=== PATIENT | female | born 1970 | race Caucasian/White ===

== ENCOUNTER 2020-10-16 06:05 | Day surgery (SDC) | payer SELFPAY ==
[2020-10-12 09:15] VITALS: BMI 29.9
[2020-10-16] MEDS ORDERED: BACITRACIN 15 GM TUBE TOPICAL OINTMENT ONE ×2 (07:34→10:27)
[2020-10-16] MEDS ORDERED: LIDOCAINE HCL 1%, 10 MG/ML (20ML VIAL) ONE ×2 (07:34→09:02)
[2020-10-16] MEDS ORDERED: EPINEPHrine/PF 1 MG/1 ML (1:1,000) AMPULE ONE ×2 (07:35→09:02)
[2020-10-16] MEDS ORDERED: SCOPOLAMINE HYDROBROMIDE 1 PATCH PATCH.TD72 ONE (07:36)
[2020-10-16] MEDS ORDERED: ROCURONIUM BROMIDE 50 MG/5 ML SYRINGE ONE (07:51)
[2020-10-16] MEDS ORDERED: PROPOFOL 20 ML ONE (07:51)
[2020-10-16] MEDS ORDERED: MIDAZOLAM HCL 2 MG/2 ML SINGLE DOSE VIAL ONE ×2 (07:51)
[2020-10-16] MEDS ORDERED: fentaNYL CITRATE 250 MCG/5 ML VIAL ONE (07:51)
[2020-10-16] MEDS ORDERED: DEXAMETHASONE SOD PHOSPHATE 4 MG/1 ML VIAL ONE (09:53)
[2020-10-16] MEDS ORDERED: ONDANSETRON 4 MG/2 ML VIAL ONE ×2 (09:53→12:12)
[2020-10-16] MEDS ORDERED: HYDROmorphone HCL/PF 1 MG/ML VIAL ONE (10:14)
[2020-10-16] MEDS ORDERED: NEOSTIGMINE METHYLSULFATE 0.5 MG/1 ML - 10 ML MDV ONE (11:00)
[2020-10-16] MEDS ORDERED: GLYCOPYRROLATE 0.2 MG/1 ML VIAL ONE (11:01)
[2020-10-16] MEDS ORDERED: ENOXAPARIN NA (PORCINE) 40 MG/0.4 ML DISP.SYRIN SQ ONE (12:12)
[2020-10-16] MEDS ORDERED: ACETAMINOPHEN INJECTION 100 ML IVPB ONE (12:13)
[2020-10-16] MEDS ORDERED: KETOROLAC TROMETHAMINE 30 MG/1 ML VIAL ONE (12:13)
[2020-10-16] MEDS ORDERED: ACETAMINOPHEN 1000 MG/100 ML VIAL (NON FORMULARY) IVPB ONE (12:27)
[2020-10-16] MEDS ORDERED: KETOROLAC TROMETHAMINE 30 MG/1 ML VIAL IVPUSH ONE (12:27)
[2020-10-16] MEDS ORDERED: ONDANSETRON 4 MG/2 ML VIAL IVPUSH PRN (12:27)
[2020-10-16] MEDS ORDERED: oxyCODONE HCL 5 MG TABLET PO PRN (12:27)
[2020-10-16 14:42] VITALS: TEMP 98.6
[2020-10-16 15:26] VITALS: BP 124/69; PULSE 78
== END 2020-10-16 13:15 | disposition home or self-care (01) ==
LOC: FASU 06:05
PROVIDERS: ATTEND Surgery
CPT/HCPCS: 81025; 94760; J0131